=== PATIENT | female | born 1980 | race Caucasian/White ===

== ENCOUNTER 2017-08-14 15:00 | Inpatient (IN) | END 2017-08-16 10:02 | disposition home or self-care (01) | DRG 781 ==

== ENCOUNTER 2017-08-19 12:32 | Outpatient (CLI) | END 2017-08-19 16:04 | disposition home or self-care (01) ==

== ENCOUNTER 2017-08-21 08:37 | Outpatient (CLI) | END 2017-08-21 11:10 | disposition home or self-care (01) ==

== ENCOUNTER 2017-09-03 19:12 | Inpatient (IN) | END 2017-09-07 16:03 | disposition home or self-care (01) | DRG 765 ==